=== PATIENT | male | born 1970 | race Hispanic/Latino ===

== ENCOUNTER 2021-10-09 00:20 | Emergency (ER) | payer OTHER ==
[2021-10-09] MEDS ORDERED: Tetracaine 0.5% PF 4 ML BOT ONE (01:26)
[2021-10-09] MEDS ORDERED: HYDROcodone/Acetaminophen 5/325 mg Tablet ONE (01:26)
[2021-10-09] MEDS ORDERED: Cyclopentolate 1% Opth Drop 2 ML BOT ONE (02:55)
[2021-10-09] MEDS ORDERED: Ibuprofen 200 MG TAB ONE (02:59)
== END 2021-10-09 03:56 | disposition home or self-care (01) ==
LOC: CSHERS 00:20
DX: H44.131 Sympathetic uveitis, right eye (principal); Z85.89 Personal history of malignant neoplasm of other organs and systems
CPT/HCPCS: 70450